=== PATIENT | female | born 1960 | race Caucasian/White ===

== ENCOUNTER → 2016-10-15 | Outpatient (CLI) | payer BC ==
[~2016-10-15] MED LIST: LORTAB 5/500 501 TAB PO; NO HOME MEDICATIONS
== END ==
LOC: MC.RAD 07:54
DX: Z12.31 Encounter for screening mammogram for malignant neoplasm of breast (principal)

== ENCOUNTER → 2018-12-10 | Outpatient (CLI) | payer BC | LOC: MC.RAD 06:56 | DX: Z12.31 Encounter for screening mammogram for malignant neoplasm of breast (principal); Z90.710 Acquired absence of both cervix and uterus ==

== ENCOUNTER → 2020-03-28 | Outpatient (CLI) | payer BC | LOC: MC.RAD 07:38 | DX: Z12.31 Encounter for screening mammogram for malignant neoplasm of breast (principal) ==

== ENCOUNTER 2020-07-12 06:36 | Day surgery (SDC) | payer BC ==
[~2020-07-12] VITALS: Ht 170.2 cm; Wt 72.0 kg
[2020-07-12 07:03] VITALS: BP 135/59; PULSE 87; TEMP 98
[2020-07-12] MEDS ORDERED: XALATAN EYE DROPS OU (07:12)
--- NOTE | 2020-07-12 07:14 | NUR ---
TO [facility] 3 AT 0648- CALL LIGHT IN REACH
[2020-07-12 08:40] VITALS: BP 121/79; PULSE 64; TEMP 96.1
--- NOTE | 2020-07-12 08:40 | NUR ---
TO BAY 3 PER CART FROM ENDOSCOPY. ALERT ORIENTED X3, TALKING WITH STAFF. AMBULATED TO RECLINER WITH ASSIST AND TOLERATED WELL. C/O L EYE PAIN UPON COMING OUT OF PROCEDURE. RUBBING HER EYE.
[2020-07-12 08:55] VITALS: BP 125/81; PULSE 64
--- NOTE | 2020-07-12 08:55 | NUR ---
PATIENT RUBBING BOTH EYES, BUT C/O ONLY OF LEFT EYE DISCOMFORT. RECEIVED SPRITE.
[2020-07-12 09:10] VITALS: BP 133/82; PULSE 60
--- NOTE | 2020-07-12 09:10 | NUR ---
STATED L EYE IS STARTING TO FEEL "SOME BETTER" RECEIVED CRACKERS.
--- NOTE | 2020-07-12 09:35 | NUR ---
DR HATHAWAY INTO TALK WITH PATIENT. RECEIVED DISCHARGE INSTRUCTIONS AND VERBALIZED UNDERSTANDING. DISCONTINUED IV AND INT- TOLERATED PO WELL. PATIENT GETTING DRESSED.
--- NOTE | 2020-07-12 09:40 | NUR ---
DISCHARGED PER WC BY NURSING STAFF TO PRIVATE CAR IN CARE OF JOHNATHAN.
== END 2020-07-12 10:37 | disposition home or self-care (01) ==
LOC: SDCO 06:36
DX: Z12.11 Encounter for screening for malignant neoplasm of colon (principal); Z80.1 Family history of malignant neoplasm of trachea, bronchus and lung; Z88.1 Allergy status to other antibiotic agents; K59.04 Chronic idiopathic constipation; I10 Essential (primary) hypertension; N30.90 Cystitis, unspecified without hematuria
CPT/HCPCS: J2704; J7030

== ENCOUNTER → 2021-10-15 | Outpatient (CLI) | payer BC ==
[~2021-10-15] MED LIST changes: +XALATAN EYE DROPS OU
== END ==
LOC: MC.RAD 07:22
DX: Z12.31 Encounter for screening mammogram for malignant neoplasm of breast (principal)